=== PATIENT | male | born 1995 | race Caucasian/White ===

== ENCOUNTER 2016-08-25 19:21 | Emergency (ER) | payer OTHER ==
[2016-08-25 19:29] VITALS: BP 131/83; PULSE 54; RESP 18; TEMP 98.7
--- NOTE | 2016-08-25 20:07 | ED ---
Lower Extremity Injury HPI - General Chief Complaint: Extremity Injury, Lower Stated Complaint: Ankle Pain Time Seen by Provider: 08/25/16 19:36 Source: patient, RN notes reviewed, old records reviewed Mode of arrival: ambulatory Limitations: no limitations - History of Present Illness Initial Comments: Patient is a 21 year old male with request of a work note for the past 2 days after spraining his right ankle while playing basket ball. Patiet states he can bear weight. Denies decreased range of motion, or foot pain. Denies previous injury to ankles. - Related Data Allergies Allergy/AdvReac Type Severity Reaction Status Date / Time No Known Allergies Allergy Verified 08/25/16 19:29 Review of Systems ROS Statement: Those systems with pertinent positive or pertinent negative responses have been documented in the HPI. ROS Other: All systems not noted in ROS Statement are negative. Past Medical History Past Medical History: No Reported History History of Any Multi-Drug Resistant Organisms: None Reported Past Surgical History: No Surgical Hx Reported Past Psychological History: No Psychological Hx Reported Smoking Status: Never smoker Past Alcohol Use History: None Reported Past Drug Use History: None Reported General Exam Limitations: no limitations General appearance: alert, in no apparent distress Head exam: Present: atraumatic, normocephalic, normal inspection Eye exam: Present: normal appearance, PERRL, EOMI. Absent: scleral icterus, conjunctival injection, periorbital swelling ENT exam: Present: normal exam, mucous membranes moist Neck exam: Present: normal inspection. Absent: tenderness, meningismus, lymphadenopathy Respiratory exam: Present: normal lung sounds bilaterally. Absent: respiratory distress, wheezes, rales, rhonchi, stridor Cardiovascular Exam: Present: regular rate, normal rhythm, normal heart sounds. Absent: systolic murmur, diastolic murmur, rubs, gallop, clicks GI/Abdominal exam: Present: soft, normal bowel sounds. Absent: distended, tenderness, guarding, rebound, rigid Extremities exam: Present: normal inspection, full ROM, normal capillary refill. Absent: tenderness, pedal edema, joint swelling, calf tenderness Back exam: Present: normal inspection Neurological exam: Present: alert, oriented X3, CN II-XII intact Psychiatric exam: Present: normal affect, normal mood Skin exam: Present: warm, dry, intact, normal color. Absent: rash Course Vital Signs 08/25/16 19:26 Temperature 98.7 F Pulse Rate 54 L Respiratory 18 Rate Blood Pressure 131/83 O2 Sat by Pulse 100 Oximetry Medical Decision Making - Medical Decision Making Patient is a 21 year old male with rightankle sprain 2 days ago, requesting an work note. PAtient told we can only write for today and one other day for a work note, cannot back date them. Patient xray is negative for any acute process. Patient given ZARA wrap, and note for today for work. Patient is walking normally, no decreased range of motion. Patient agrees to treatment plan and will comply. - Radiology Data Radiology results: report reviewed Right ankle negative for any fracture or dislocation. Disposition Clinical Impression: Right ankle sprain Disposition: HOME SELF-CARE Condition: Good Instructions: Ankle Sprain (ED) Additional Instructions: Follow-up with orthopedic physician if symptoms continue to persist. Rest, ice , and elevate extremity. Patient is to wear the compression band. Return to emergency department if any alarming signs or symptoms occur. Referrals: Fay López MD [STAFF PHYSICIAN] - 1-2 days Mario Alberto Genao MD [STAFF PHYSICIAN] - 1-2 days Time of Disposition: 20:06
--- NOTE | 2016-08-25 20:09 | XR ---
EXAMINATION TYPE: XR ankle complete RT DATE OF EXAM: 08/25/2016 7:49 PM COMPARISON: NONE HISTORY: Patient rolled his ankle during basketball injury. TECHNIQUE: 3 views of the right ankle were obtained. FINDINGS: There is normal osseous mineralization. Note is made of an incidental os trigonum. There is no evidence of joint effusion. Ankle mortise is intact and maintains normal alignment. There is no e vidence of fracture or dislocation. Achilles tendon is unremarkable. No degenerative changes are seen . No prominent soft tissue swelling is noted. IMPRESSION: No evidence of fracture or dislocation.
== END 2016-08-25 20:17 | disposition home or self-care (01) ==
LOC: EC 19:21
DX: S93.401A Sprain of unspecified ligament of right ankle, initial encounter (principal); X58.XXXA Exposure to other specified factors, initial encounter; Y93.67 Activity, basketball; Y92.89 Other specified places as the place of occurrence of the external cause
CPT/HCPCS: 99284

== ENCOUNTER 2016-10-23 19:26 | Emergency (ER) | payer SELFPAY ==
[2016-10-23 19:30] VITALS: BP 120/74; PULSE 56; RESP 18; TEMP 98.3
--- NOTE | 2016-10-23 20:00 | ED ---
Extremity Problem HPI - General Chief complaint: Extremity Problem,Nontraumatic Stated complaint: R foot injury Time Seen by Provider: 10/23/16 19:36 Source: patient, RN notes reviewed Mode of arrival: ambulatory Limitations: no limitations - History of Present Illness Initial comments: 21-year-old male presents emergency Department with chief complaint of right ankle pain 2 months. Patient states he was diagnosed with ankle sprain. Patient states he never followed up with anybody break continues to have some discomfort on the lateral aspect. He states he also has some pain on the anterior aspect. Patient states is worse with ambulation and when he twisted his ankle. Patient denies any swelling, ecchymosis, paresthesias. Denies any pain in his foot or proximal lower leg. Patient has never seen an orthopedic doctor in the past. - Related Data Home Medications Medication Instructions Recorded Confirmed Ibuprofen [Motrin] 200 - 600 mg PO Q8H PRN 10/23/16 10/23/16 Allergies Allergy/AdvReac Type Severity Reaction Status Date / Time No Known Allergies Allergy Verified 10/23/16 19:44 Review of Systems ROS Statement: Those systems with pertinent positive or pertinent negative responses have been documented in the HPI. ROS Other: All systems not noted in ROS Statement are negative. Past Medical History Past Medical History: No Reported History History of Any Multi-Drug Resistant Organisms: None Reported Past Surgical History: No Surgical Hx Reported Past Psychological History: No Psychological Hx Reported Smoking Status: Never smoker Past Alcohol Use History: None Reported Past Drug Use History: None Reported General Exam Limitations: no limitations General appearance: alert, in no apparent distress Respiratory exam: Present: normal lung sounds bilaterally. Absent: respiratory distress, wheezes, rales, rhonchi, stridor Cardiovascular Exam: Present: regular rate, normal rhythm, normal heart sounds. Absent: systolic murmur, diastolic murmur, rubs, gallop, clicks Extremities exam: Present: other (Right ankle there is tenderness along the lateral to anterior surface there is no swelling no laxity negative anterior drawer test, pedal pulses equal bilaterally there is no tenderness to the right foot. Pedal pulses are equal bilaterally) Skin exam: Present: warm, dry, intact, normal color. Absent: rash Course Vital Signs 10/23/16 19:27 Temperature 98.3 F Pulse Rate 56 L Respiratory 18 Rate Blood Pressure 120/74 O2 Sat by Pulse 97 Oximetry Medical Decision Making - Medical Decision Making 21-year-old male presented for ankle pain. There is some calcaneus burn noted there is no acute osseous lesion though. Patient has had ongoing ankle pain for 2 months after an ankle sprain. Patient has had no follow-up. Patient be advised to follow-up with his PCP or fourth toe. Patient decided be treated conservative return parameters were discussed. Disposition Clinical Impression: Right ankle pain Disposition: HOME SELF-CARE Condition: Stable Instructions: Ankle Sprain (ED) Additional Instructions: Please return to the Emergency Department if symptoms worsen or any other concerns. Referrals: None,Stated [Primary Care Provider] - 1-2 days Mario Alberto Genao MD [STAFF PHYSICIAN] - 1-2 days Time of Disposition: 20:19
--- NOTE | 2016-10-23 20:03 | XR ---
EXAMINATION TYPE: XR ankle complete RT DATE OF EXAM: 10/23/2016 COMPARISON: 08/25/2016 HISTORY: Ankle pain TECHNIQUE: 3 views FINDINGS: Ankle mortise is anatomic. I see no fracture nor dislocation. There is mild spurring of the anterior and posterior malleolus. IMPRESSION: Minimal spurring. No fracture seen. No significant change.
== END 2016-10-23 20:23 | disposition home or self-care (01) ==
LOC: EC 19:26
DX: M25.571 Pain in right ankle and joints of right foot (principal)
CPT/HCPCS: 99283

== ENCOUNTER 2016-10-28 11:39 | Emergency (ER) | payer OTHER ==
[2016-10-28 11:50] VITALS: BP 139/87; PULSE 93; RESP 20; TEMP 98.3
--- NOTE | 2016-10-28 12:30 | ED ---
General Adult HPI - General Chief complaint: Skin/Abscess/Foreign Body Stated complaint: poison richar Time Seen by Provider: 10/28/16 11:57 Source: patient, RN notes reviewed Mode of arrival: ambulatory Limitations: no limitations - History of Present Illness Initial comments: 21-year-old male presenting with a one-day history of rash in his bilateral upper shoulders, abdomen and scrotum. Patient was clearing brush and cutting trees and was exposed to poison richar. Initially developed a rash several hours after exposure. Denies fever chills denies nausea vomiting. Denies cough or difficulty breathing. Rash is erythematous and itchy. - Related Data Previous Rx's Medication Instructions Recorded diphenhydrAMINE [Benadryl] 25 mg PO TID PRN #30 capsule 10/28/16 methylPREDNISolone Dose Pack 4 mg PO DIRECTED #21 package 10/28/16 [Medrol Dose Pack] methylPREDNISolone Dose Pack 4 mg PO DIRECTED #21 package 10/28/16 [Medrol Dose Pack] Allergies Allergy/AdvReac Type Severity Reaction Status Date / Time No Known Allergies Allergy Verified 10/28/16 11:49 Review of Systems ROS Statement: Those systems with pertinent positive or pertinent negative responses have been documented in the HPI. ROS Other: All systems not noted in ROS Statement are negative. Skin: Reports: as per HPI, rash Past Medical History Past Medical History: No Reported History History of Any Multi-Drug Resistant Organisms: None Reported Past Surgical History: No Surgical Hx Reported Past Psychological History: No Psychological Hx Reported Smoking Status: Never smoker Past Alcohol Use History: None Reported Past Drug Use History: None Reported General Exam Limitations: no limitations General appearance: alert, in no apparent distress Head exam: Present: atraumatic, normocephalic Eye exam: Present: normal appearance, PERRL ENT exam: Present: normal exam Neck exam: Present: normal inspection, full ROM Respiratory exam: Present: normal lung sounds bilaterally Cardiovascular Exam: Present: regular rate, normal rhythm GI/Abdominal exam: Present: soft, other (Erythematous rash on the lower abdomen. Papular. With small vesicular changes.) Extremities exam: Present: normal inspection, other (Rash) Neurological exam: Present: alert, altered Psychiatric exam: Present: normal affect, normal mood Skin exam: Present: rash, erythema, vesicles (Bilateral upper extremities and abdomen, linear in nature with papular and small vesicular changes consistent with poison richar exposure.). Absent: petechiae Course Vital Signs 10/28/16 11:48 Temperature 98.3 F Pulse Rate 93 Respiratory 20 Rate Blood Pressure 139/87 O2 Sat by Pulse 98 Oximetry Medical Decision Making - Medical Decision Making 21-year-old male with poison richar exposure presenting with rash. Patient has linear and papular rash on the bilateral upper tremors, abdomen and scrotum. There is some fascicular changes. Rash is consistent with poison richar exposure. Exam is otherwise unremarkable. Patient is given steroids and instructed to take Benadryl for itching symptoms. He will follow up with his primary care physician. Disposition Clinical Impression: Contact dermatitis, Poison richar dermatitis Disposition: HOME SELF-CARE Condition: Good Prescriptions: diphenhydrAMINE [Benadryl] 25 mg PO TID PRN #30 capsule PRN Reason: Allergic Reaction methylPREDNISolone Dose Pack [Medrol Dose Pack] 4 mg PO DIRECTED #21 package methylPREDNISolone Dose Pack [Medrol Dose Pack] 4 mg PO DIRECTED #21 package Referrals: None,Stated [Primary Care Provider] - 1-2 days Fay López MD [STAFF PHYSICIAN] - 1-2 days Time of Disposition: 12:30
== END 2016-10-28 12:41 | disposition home or self-care (01) ==
LOC: EC 11:39
DX: L23.7 Allergic contact dermatitis due to plants, except food (principal)
CPT/HCPCS: 99282

== ENCOUNTER 2016-11-01 19:05 | Emergency (ER) | payer OTHER ==
[2016-11-01 19:14] VITALS: BP 116/65; PULSE 100; RESP 18; TEMP 99
[2016-11-01] MEDS ORDERED: methylPREDNISolone SOD SUCCI 125 MG/2 ML VIAL IM ONE (19:23)
[2016-11-01] MEDS ORDERED: diphenhydrAMINE 50 MG/ML 1 ML VIAL IM STA (19:23)
--- NOTE | 2016-11-01 19:41 | ED ---
General Adult HPI - General Chief complaint: Skin/Abscess/Foreign Body Stated complaint: poison clarice Time Seen by Provider: 11/01/16 19:19 Source: patient, family, RN notes reviewed, old records reviewed Mode of arrival: ambulatory Limitations: no limitations - Related Data Home Medications Medication Instructions Recorded Confirmed methylPREDNISolone Dose Pack See Taper PO DAILY 11/01/16 11/01/16 [Medrol Dose Pack] Previous Rx's Medication Instructions Recorded diphenhydrAMINE [Benadryl] 25 mg PO TID PRN #30 capsule 11/01/16 predniSONE 60 mg PO DAILY #42 tab 11/01/16 Allergies Allergy/AdvReac Type Severity Reaction Status Date / Time No Known Allergies Allergy Verified 11/01/16 19:36 Review of Systems ROS Statement: Those systems with pertinent positive or pertinent negative responses have been documented in the HPI. ROS Other: All systems not noted in ROS Statement are negative. Past Medical History Past Medical History: No Reported History History of Any Multi-Drug Resistant Organisms: None Reported Past Surgical History: No Surgical Hx Reported Past Psychological History: No Psychological Hx Reported Smoking Status: Never smoker Past Alcohol Use History: None Reported Past Drug Use History: None Reported General Exam Limitations: no limitations General appearance: alert, in no apparent distress Head exam: Present: atraumatic, normocephalic, normal inspection Eye exam: Present: normal appearance, PERRL, EOMI. Absent: scleral icterus, conjunctival injection, periorbital swelling ENT exam: Present: normal exam, mucous membranes moist Neck exam: Present: normal inspection. Absent: tenderness, meningismus, lymphadenopathy Respiratory exam: Present: normal lung sounds bilaterally. Absent: respiratory distress, wheezes, rales, rhonchi, stridor Cardiovascular Exam: Present: regular rate, normal rhythm, normal heart sounds. Absent: systolic murmur, diastolic murmur, rubs, gallop, clicks GI/Abdominal exam: Present: soft, normal bowel sounds. Absent: distended, tenderness, guarding, rebound, rigid Extremities exam: Present: normal inspection, full ROM, normal capillary refill. Absent: tenderness, pedal edema, joint swelling, calf tenderness Back exam: Present: normal inspection Neurological exam: Present: alert, oriented X3, CN II-XII intact Psychiatric exam: Present: normal affect, normal mood Skin exam: Present: warm, dry, intact, normal color, rash (Erythematous linear pruritic rash over arms, abdomen and groin area. Rash is consistent with poison oak dermatitis.) Course Vital Signs 11/01/16 19:13 Temperature 99 F Pulse Rate 100 Respiratory 18 Rate Blood Pressure 116/65 O2 Sat by Pulse 96 Oximetry Disposition Clinical Impression: Contact dermatitis, Poison clarice dermatitis Disposition: HOME SELF-CARE Condition: Good Instructions: Poison Clarice (ED) Additional Instructions: Patient advised to apply calamine and Benadryl lotion over the areas. Take the steroid pack as directed. Patient should follow-up with primary care provider. Return to the emergency department if any alarming signs or symptoms occur. Prescriptions: diphenhydrAMINE [Benadryl] 25 mg PO TID PRN #30 capsule PRN Reason: Pain predniSONE 60 mg PO DAILY #42 tab Referrals: None,Stated [Primary Care Provider] - 1-2 days Fya López MD [STAFF PHYSICIAN] - 1-2 days Time of Disposition: 19:37
== END 2016-11-01 19:46 | disposition home or self-care (01) ==
LOC: EC 19:05
DX: L23.7 Allergic contact dermatitis due to plants, except food (principal); Z79.899 Other long term (current) drug therapy
CPT/HCPCS: 99282; 96372 ×2; J1200; J2930

== ENCOUNTER 2017-12-29 16:03 | Emergency (ER) | payer OTHER ==
[2017-12-29 16:12] VITALS: BP 131/81; PULSE 60; RESP 16; TEMP 98.7
--- NOTE | 2017-12-29 16:54 | XR ---
EXAMINATION TYPE: XR wrist complete RT DATE OF EXAM: 12/29/2017 COMPARISON: NONE HISTORY: 22-year-old male with pain TECHNIQUE: 4 views FINDINGS: Only seen on the AP view, there is lucency seen along the articular surface of the distal radius at t he junction of the scaphoid and lunate fossa. This is not confirmed on any other view. Radiocarpal an d distal radioulnar joints as well as the midcarpal compartment otherwise remain intact. IMPRESSION: Subtle lucency along the articular surface of the distal radius not confirmed on additional views, li marcela projectional artifact rather than a nondisplaced intra-articular fracture. Follow-up in 10-14 da ys to reassess.
[2017-12-29] MEDS ORDERED: traMADol 50 MG STARTER PACK 3 TAB BTL PO STA (17:03)
--- NOTE | 2017-12-29 17:03 | ED ---
General Adult HPI - General Chief complaint: Extremity Injury, Upper Stated complaint: ankle and wrist pain Time Seen by Provider: 12/29/17 16:31 Source: patient, RN notes reviewed Mode of arrival: ambulatory Limitations: no limitations - History of Present Illness Initial comments: This a 22-year-old male presents emergency Department chief complaint of right wrist pain, right ankle pain. He's had chronic issues with his right ankle secondary to an injury in which Dr. Soni told him he had a ruptured tendon. Patient states he started therapy but never completed it. Patient states he has not followed up because he does not have current insurance. Patient states she's had a right wrist pain for last 2 months after feeling a pop during bends pressing. He had no new injury. He states is only painful to put pressure on it or with wrist flexion-extension. He states he has no pain with pronation supination denies any paresthesias. - Related Data Previous Rx's Medication Instructions Recorded Ibuprofen [Motrin] 600 mg PO Q8HR PRN #30 tab 12/29/17 Allergies Allergy/AdvReac Type Severity Reaction Status Date / Time No Known Allergies Allergy Verified 12/29/17 16:12 Review of Systems ROS Statement: Those systems with pertinent positive or pertinent negative responses have been documented in the HPI. ROS Other: All systems not noted in ROS Statement are negative. Past Medical History Past Medical History: No Reported History History of Any Multi-Drug Resistant Organisms: None Reported Past Surgical History: No Surgical Hx Reported Past Psychological History: No Psychological Hx Reported Smoking Status: Never smoker Past Alcohol Use History: None Reported Past Drug Use History: None Reported General Exam Limitations: no limitations General appearance: alert, in no apparent distress Head exam: Present: atraumatic, normocephalic, normal inspection Neck exam: Present: normal inspection, full ROM. Absent: tenderness, meningismus, lymphadenopathy Respiratory exam: Present: normal lung sounds bilaterally. Absent: respiratory distress, wheezes, rales, rhonchi, stridor Cardiovascular Exam: Present: regular rate, normal rhythm, normal heart sounds. Absent: systolic murmur, diastolic murmur, rubs, gallop, clicks Extremities exam: Present: other (Right wrist full range of motion mild tenderness diffusely, neurovascular intact full strength equal bilaterally, right ankle full range of motion no swelling no ecchymosis neurovascular intact there is no localized tenderness.) Skin exam: Present: warm, dry, intact, normal color. Absent: rash Course Vital Signs 12/29/17 16:10 Temperature 98.7 F Pulse Rate 60 Respiratory 16 Rate Blood Pressure 131/81 O2 Sat by Pulse 98 Oximetry Medical Decision Making - Medical Decision Making 22-year-old male presents emergency department for right wrist and ankle pain. He is more a chronic issue there's been no acute injury other than his wrist 2 months ago. X-rays were reviewed and is no localized tenderness for possible fracture. Patient is advised to wear wrist brace, ankle brace and follow-up with orthopedics and return for any worsening symptoms. Disposition Clinical Impression: Chronic pain of right ankle, Chronic pain of right wrist Disposition: HOME SELF-CARE Condition: Stable Instructions: Wrist Injury (ED) Additional Instructions: Please return to the Emergency Department if symptoms worsen or any other concerns. Prescriptions: Ibuprofen [Motrin] 600 mg PO Q8HR PRN #30 tab PRN Reason: Pain Is patient prescribed a controlled substance at d/c from ED?: No Referrals: Elfego Rivera MD [Medical Doctor] - 1-2 days Time of Disposition: 17:02
== END 2017-12-29 17:18 | disposition home or self-care (01) ==
LOC: EC 16:03
DX: G89.29 Other chronic pain (principal); M25.571 Pain in right ankle and joints of right foot; M25.531 Pain in right wrist
CPT/HCPCS: 99283

== ENCOUNTER 2020-11-10 16:30 | Emergency (ER) | payer OTHER ==
--- NOTE | 2020-11-10 17:31 | ED ---
Recheck HPI - General Chief Complaint: Recheck/Abnormal Lab/Rx Stated Complaint: Food poisoning Time Seen by Provider: 11/10/20 16:52 Source: patient Mode of arrival: ambulatory Limitations: no limitations - History of Present Illness Initial Comments: Patient is a 25-year-old male presenting to emergency Department with complaints of a hemorrhoid over the past few days. He states he just recently got over a bout of food poisoning and had a lot of diarrhea and bowel movements. He states he did notice he developed a large hemorrhoid. He states he's been very uncomfortable or left past 2 days. He's been trying [id number] medicines with only mild improvement in symptoms. He denies any abdominal pain, nausea or vomiting. He denies any fevers or chills. He has no further complaints at this time. - Related Data Previous Rx's Medication Instructions Recorded Ibuprofen [Motrin] 600 mg PO Q8HR PRN #30 tab 12/29/17 Hydrocortisone Cream 1 applic RECTAL BID 5 Days #1 tube 11/10/20 [Hydrocortisone 2.5% Cream] Allergies Allergy/AdvReac Type Severity Reaction Status Date / Time No Known Allergies Allergy Verified 11/10/20 16:40 Review of Systems ROS Statement: Those systems with pertinent positive or pertinent negative responses have been documented in the HPI. ROS Other: All systems not noted in ROS Statement are negative. Past Medical History Past Medical History: No Reported History History of Any Multi-Drug Resistant Organisms: None Reported Past Surgical History: No Surgical Hx Reported Past Psychological History: No Psychological Hx Reported Smoking Status: Never smoker Past Alcohol Use History: None Reported Past Drug Use History: None Reported General Exam - General Exam Comments Initial Comments: GENERAL: Patient is well-developed and well-nourished. Patient is nontoxic and in no acute distress. HEAD: Atraumatic, normocephalic. EYES: Pupils equal round and reactive to light, extraocular movements intact, sclera anicteric, conjunctiva are normal. Eyelids were unremarkable. LUNGS: Unlabored respirations. Breath sounds clear to auscultation bilaterally and equal. No wheezes rales or rhonchi. HEART: Regular rate and rhythm without murmurs, rubs or gallops. ABDOMEN: Soft, nontender, normoactive bowel sounds. No guarding, no rebound. No masses appreciated. : Deferred MUSCULOSKELETAL: Normal extremities with adequate strength and normal range of motion, no pitting or edema. No clubbing or cyanosis. SKIN: Warm, Dry, normal turgor, no rashes or lesions noted. Limitations: no limitations Rectal exam: Present: normal rectal tone, hemorrhoids Course Vital Signs 11/10/20 16:38 Temperature 98.4 F Pulse Rate 87 Respiratory 18 Rate Blood Pressure 134/88 O2 Sat by Pulse 98 Oximetry Medical Decision Making - Medical Decision Making Patient is a 25-year-old male here with complaints of a hemorrhoid over the past 2 days. He had about food poisoning with many bowel movements over the past week. Those symptoms have cleared up. He has tried [id number] medications for the hemorrhoid without improvement. I will give him a prescri ption strength steroid cream, also recommended warm baths and a stool softener. He can follow up with his primary care physician. He is in agreement with this plan of care and he is stable for discharge. Disposition Clinical Impression: Hemorrhoid Disposition: HOME SELF-CARE Condition: Stable Instructions (If sedation given, give patient instructions): Hemorrhoids (ED) Additional Instructions: Please return to the Emergency Department if symptoms worsen or any other concerns. Recommended steroid cream as prescribed. Also recommend a stool softener daily, warm baths. Trial of witch thalia pads as well. Please follow up with your primary care physician. Prescriptions: Hydrocortisone Cream [Hydrocortisone 2.5% Cream] 1 applic RECTAL BID 5 Days #1 tube Is patient prescribed a controlled substance at d/c from ED?: No Referrals: None,Stated [Primary Care Provider] - 1-2 days Time of Disposition: 17:31
[2020-11-10 17:54] VITALS: BP 129/82; PULSE 75; RESP 17; TEMP 98.6
== END 2020-11-10 17:54 | disposition home or self-care (01) ==
LOC: EC 16:30
DX: K64.9 Unspecified hemorrhoids (principal)
CPT/HCPCS: 99283

== ENCOUNTER 2024-08-24 15:06 | Emergency (ER) | payer OTHER ==
--- NOTE | 2024-08-24 15:26 | ED ---
Back Pain HPI - General Chief Complaint: Back Pain/Injury Stated Complaint: Back pain Time Seen by Provider: 08/24/24 15:24 Source: patient, EMS, RN notes reviewed Limitations: no limitations - History of Present Illness Initial Comments: 29-year-old male presented the ER via EMS for evaluation of back pain. Patient states he has known L4-L5 disc bulge stating it is 9 mm. He is following up with [facility]. Patient has completed physical therapy but states today while bending over to clean the couch off he felt a sharp stabbing pain to his lower back. He states he immediately stood up and had to lay on the ground given the pain. He did not fall. Patient is reporting extreme pain to lumbar spine with increase in pain with movement of left lower extremity. He denies any radiation of pain to lower extremities or paresthesias to lower extremities. Patient denies any saddle paresthesias, bowel or bladder incontinence/retention, fevers or history of IV drug abuse. Patient states he did take ibuprofen prior to calling EMS and did receive 100 mcg of fentanyl by EMS. He reports this is not helped with his pain and his pain is still currently a 10 out of 10. He states he is typically able to rest for a couple of days with improvement of back pain but this is not similar to typical back pain flares. No other complaints. - Related Data Previous Rx's Medication Instructions Recorded Ibuprofen [Motrin] 600 mg PO Q8HR PRN #30 tab 12/29/17 Hydrocortisone Cream 1 applic RECTAL BID 5 Days #1 tube 11/10/20 [Hydrocortisone 2.5% Cream] Acetaminophen-Codeine 300-30mg 1 tab PO Q4-6H PRN #10 tablet 08/24/24 [Tylenol #3] Cyclobenzaprine [Flexeril] 10 mg PO TID PRN #15 tab 08/24/24 Lidocaine 4% Patch 1 patch TOPICAL DAILY #30 patch 08/24/24 Allergies Allergy/AdvReac Type Severity Reaction Status Date / Time No Known Allergies Allergy Verified 08/24/24 18:26 Review of Systems ROS Statement: Those systems with pertinent positive or pertinent negative responses have been documented in the HPI. ROS Other: All systems not noted in ROS Statement are negative. Past Medical History Past Medical History: No Reported History History of Any Multi-Drug Resistant Organisms: None Reported Past Surgical History: No Surgical Hx Reported Past Psychological History: No Psychological Hx Reported Smoking Status: Never smoker Past Alcohol Use History: None Reported Past Drug Use History: None Reported General Exam Limitations: no limitations General appearance: alert, in no apparent distress Respiratory exam: Present: normal lung sounds bilaterally. Absent: respiratory distress, wheezes, rales, rhonchi, stridor Cardiovascular Exam: Present: regular rate, normal rhythm, normal heart sounds. Absent: systolic murmur, diastolic murmur, rubs, gallop, clicks Extremities exam: Present: normal inspection, full ROM, normal capillary refill (2+ PT/DP pulses bilaterally). Absent: tenderness, pedal edema, joint swelling, calf tenderness Back exam: Present: normal inspection, tenderness (L4-L5) Neurological exam: Present: alert, oriented X3, CN II-XII intact Skin exam: Present: warm, dry, intact, normal color. Absent: rash Course Vital Signs 08/24/24 08/24/24 08/24/24 15:07 16:21 17:50 Temperature 98 F 98.1 F Pulse Rate 54 L 51 L 59 L Respiratory 22 20 20 Rate Blood Pressure 143/81 115/71 111/72 O2 Sat by Pulse 100 98 99 Oximetry Medical Decision Making - Medical Decision Making Was pt. sent in by a medical professional or institution (, PA, [employer], urgent care, hospital, or [facility]...) When possible be specific @ -No Did you speak to anyone other than the patient for history (EMS, parent, family, police, friend...)? What history was obtained from this source @ -No Did you review nursing and triage notes (agree or disagree)? Why? @ -I reviewed and agree with nursing and triage notes Were old charts reviewed (outside hosp., previous admission, EMS record, old EKG, old radiological studies, urgent care reports/EKG's, [facility] records)? Report findings @ -No old charts were reviewed Differential Diagnosis (chest pain, altered mental status, abdominal pain women, abdominal pain men, vaginal bleeding, weakness, fever, dyspnea, syncope, headache, dizziness, GI bleed, back pain, seizure, CVA, palpatations, mental health, musculoskeletal)? @ -Differential Back Pain: Strain, zoster, cauda equina syndrome, epidural abscess, vertebral osteomyelitis, discitis, fracture, subluxation, disc herniation, DJD, spinal stenosis, dissection, AAA, pancreatitis, peptic ulcer disease, pyelonephritis, kidney stone, this is not meant to be an all-inclusive list. EKG interpreted by me (3pts min.). @ -None done X-rays interpreted by me (1pt min.). @ -None done CT interpreted by me (1pt min.). @ - Ct lumbar spine significant for no evidence for spinal fracture. Large L4- L5 disc herniation with superior and inferior migration of disc material with moderate spinal canal stenosis. U/S interpreted by me (1pt. min.). @ -None done What testing was considered but not performed or refused? (CT, X-rays, U/S, labs)? Why? @ -None What meds were considered but not given or refused? Why? @ -None Did you discuss the management of the patient with other professionals (professionals i.e. , PA, [employer] TRAINER, lab, RT, psych nurse, health social work professor, ward service supervisor, teacher, strike warfare/missile systems officer, major case detective)? Give summary @ -No Was smoking cessation discussed for >3mins.? @ -No Was critical care preformed (if so, how long)? @ -No Were there social determinants of health that impacted care today? How? (Homelessness, low income, unemployed, alcoholism, drug addiction, transportation, low edu. Level, literacy, decrease access to med. care, correction, re hab)? @ -No Was there de-escalation of care discussed even if they declined (Discuss DNR or withdrawal of care, Hospice)? DNR status @ -No What co-morbidities impacted this encounter? (DM, HTN, Smoking, COPD, CAD, Cancer, CVA, ARF, Chemo, Hep., AIDS, mental health diagnosis, sleep apnea, morbid obesity)? @ -None Was patient admitted / discharged? Hospital course, mention meds given and route, prescriptions, significant lab abnormalities, going to OR and other pertinent info. @ -Discharged. 29 year old male presenting to the ER via EMS for evaluation of back pain. Vitals stable. Patient no signs of acute distress nontoxic- appearing. No red flag back pain symptoms indicative of cauda equina syndrome. Patient is neurovascularly intact. Patient is able to move lower extremities but this does elicit pain. Patient received 100 mcg fentanyl by EMS complaining of continued pain. Given patient's reported history of known herniated disc, CT lumbar spine will be obtained along with symptomatic control. CT lumbar spine showing a large L4-L5 disc herniation with superior and inferior migration of disc material with moderate spinal canal stenosis. Patient received symptomatic control with IV Dilaudid, Decadron, Norflex along with lidocaine patch, with improvement. Patient attempted to ambulate in the ER and reported extreme increase in pain. Admission was offered for intractable back pain with orthopedic consultation, patient refused and states he would like to be discharged. Patient will be discharged in stable condition with a prescription for lidocaine patches and Tylenol threes. Strict return parameters discussed. I advised close follow-up with orthopedic accreditation specialist, referral given, and/or [facility] clinic within the next 1 to 2 days for reevaluation. Patient verbally expressed understanding and agreement with care plan. Case discussed with ED attending, Dr. Salmon. Undiagnosed new problem with uncertain prognosis? @ -No Drug Therapy requiring intensive monitoring for toxicity (Heparin, Nitro, Insulin, Cardizem)? @ -No Were any procedures done? @ -No Diagnosis/symptom? @ -L4-L5 disc herniation/back pain Acute, or Chronic, or Acute on Chronic? @ -Acute on chronic Uncomplicated (without systemic symptoms) or Complicated (systemic symptoms)? @ -Uncomplicated Side effects of treatment? @ -No Exacerbation, Progression, or Severe Exacerbation? @ -No Poses a threat to life or bodily function? How? (Chest pain, USA, MD, pneumonia, PE, COPD, DKA, ARF, appy, cholecystitis, CVA, Diverticulitis, Homicidal, Suicidal, threat to staff... and all critical care pts) @ -Low at this time. - Radiology Data Radiology results: report reviewed, image reviewed Disposition Clinical Impression: Disc herniation, Back pain Disposition: HOME SELF-CARE Condition: Stable Instructions (If sedation given, give patient instructions): Acute Low Back Pain (ED) Additional Instructions: Follow-up with orthopedic accreditation specialist. You may take Flexeril and Tylenol 3's as prescribed for pain control. Be aware that these medications may make you drowsy and do not operate heavy machinery while on these medications. Return to the ER for any new or worsening concerns. Prescriptions: Cyclobenzaprine [Flexeril] 10 mg PO TID PRN #15 tab PRN Reason: Muscle Spasm Lidocaine 4% Patch 1 patch TOPICAL DAILY #30 patch Acetaminophen-Codeine 300-30mg [Tylenol #3] 1 tab PO Q4-6H PRN #10 tablet PRN Reason: pain Is patient prescribed a controlled substance at d/c from ED?: Yes When asked, does pt state using other controlled substances?: No If prescribed controlled substance>3 days was MAPS reviewed?: Prescribed <3 Days If opioid is for acute pain is fill amount 7 days or less?: Yes If Rx opioid, was Start Talking consent form obtained?: Yes Referrals: Katherin Arora MD [Primary Care Provider] - 1-2 days Katelynn Oreilly DO [Doctor of Osteopathic Medicine] - 1-2 days Time of Disposition: 17:28
[2024-08-24] MEDS: LIDOCAINE 4% PATCH TOPICAL ONE (15:29)
[2024-08-24] MEDS: ORPHENADRINE 30 MG/ML 2 ML VIAL IVP STA (15:30)
[2024-08-24] MEDS: HYDROmorphone 2 MG/ML 1 ML SYRINGE IVP STA (15:30)
[2024-08-24 16:22] VITALS: RESP 20
--- NOTE | 2024-08-24 16:26 | CT ---
EXAMINATION TYPE: CT lumbar spine wo con DATE OF EXAM: 08/24/2024 4:02 PM COMPARISON: None. CLINICAL INDICATION: Male, 29 years old with history of back pain known L4-L5 injury; PHH, lumbar jodi n, L4-L5 known injury from last August TECHNIQUE: Multiple axial images were obtained from the midportion of T11 through the sacroiliac sandro nts. Soft tissue and bone windows in coronal and sagittal planes were obtained and reviewed. Contrast used: mL of , (None, if empty). Oral contrast used: (None, if empty). CT DLP: 997.4 mGycm, Automated exposure control for dose reduction was used. FINDINGS: Alignment: There are 5 lumbar type vertebral bodies within normal alignment. Bone: No evidence of fracture is identified. Minimal degeneration changes present with osteophytes a nd facet joint arthropathy. Discs: T12-L1: No spinal canal or neural foraminal stenosis is identified. L1-L2: No spinal canal or neural foraminal stenosis is identified. L2-L3: No spinal canal or neural foraminal stenosis is identified. L3-L4: No spinal canal or neural foraminal stenosis is identified. L4-L5: Disc herniation at L4-L5 with superior migration up to 7 mm and inferiorly up to 3 mm. This re sults in moderate spinal canal stenosis. L5-S1: No spinal canal or neural foraminal stenosis is identified. Other: None IMPRESSION: 1. No evidence for spinal fracture. 2. Large L4-L5 disc herniation with superior and inferior migration of disc material with moderate sp inal canal stenosis. Consider further evaluation with MRI if not recently performed. [facility], , 08/24/2024 4:24 PM
[2024-08-24] MEDS: HYDROmorphone 0.5 MG/0.5 ML SYRINGE IVP STA (16:40)
[2024-08-24] MEDS: DEXAMETHASONE SOD PHOSPHATE 10 MG/ML 1 ML VIAL IVP STA (16:40)
[2024-08-24 17:51] VITALS: BP 111/72; PULSE 59; TEMP 98.1
== END 2024-08-24 17:51 | disposition home or self-care (01) ==
LOC: EC 15:06
DX: M51.360 Other intervertebral disc degeneration, lumbar region with discogenic back pain only (principal)
CPT/HCPCS: 72131; 99284; 96374; 96375 ×2; 96376; J1171 ×2; J1100; J2360